=== PATIENT | female | born 1990 | race African-American/Black ===

== ENCOUNTER 2019-11-29 14:33 | Emergency (ER) | payer BC, OTHER, SELFPAY | END 2019-11-29 14:58 | disposition home or self-care (01) | LOC: ERS 14:33 | DX: J30.9 Allergic rhinitis, unspecified (principal); R51 Headache; Z87.891 Personal history of nicotine dependence | CPT/HCPCS: 99283 ==

== ENCOUNTER 2020-12-03 01:24 | Emergency (ER) | payer BC, SELFPAY ==
[2020-12-03] MEDS ORDERED: Acetaminophen 500 MG TAB ONE ×2 (02:15→02:24)
[2020-12-03 12:07] LABS: SARS-CoV-2 PCR by NAA Not Detected (NotDetected)
== END 2020-12-03 03:17 | disposition home or self-care (01) ==
LOC: ERS 01:24
DX: J06.9 Acute upper respiratory infection, unspecified (principal); Z20.822 Contact with and (suspected) exposure to COVID-19; Z87.891 Personal history of nicotine dependence
CPT/HCPCS: 87635; 99283; U0003; U0005